=== PATIENT | female | born 1960 | race Caucasian/White ===

== ENCOUNTER 2022-10-27 10:12 | Inpatient (IN) | payer OTHER ==
[~2022-10-27] VITALS: Ht 167.6 cm; Wt 73.5 kg
--- NOTE | 2022-10-27 10:28 | NUR ---
PTE ALERTA, CONCIENTE Y ORIENTADO X 3. PACIENTE REFIERE TENER DOLOR EN HEMOROIDES INFLAMADAS, DOLOR ABDOMINAL.
--- NOTE | 2022-10-27 12:29 | NUR ---
PACIENTE SE LE REALIZA ADMINISTRACION DE MEDICAMENTOS POR ORDEN MEDICA. SE ORIENTA A PACIENTE SOBRE USO Y EFECTOS. SE REALIZA CANALIZACION DE VENA Y SE MANTIENE EN ESPERA DE ESTUDIO YA NOTIFICADO.
--- NOTE | 2022-10-27 15:41 | NUR ---
SE RECIBE PTE ALERTA Y ORIENTADA EN SUKI BAJA CON BARANDAS ELEVADAS POR SEGURIDAD. SE OBSERVA CON BUEN PATRON RESPITAORIO, RECIBIENDO IV FLUIDS PATENTE. AREA DE VENOPUNCION LUCY DE EDEMA Y ERITEMA. PEND CT CON CONTRASTE PO Y IV A LAS 5:00PM.
[2022-10-30] MEDS ORDERED: DULOXETINE HCL30 MG (13:09)
[2022-10-30] MEDS ORDERED: OMEPRAZOLE20 MG (13:09)
[2022-10-30] MEDS ORDERED: PANTOPRAZOLE SO40 MG (13:09)
[2022-10-31] MEDS ORDERED: METRONIDAZOLE500 MG PO (13:44)
[2022-10-31] MEDS ORDERED: CIPRO500 MG PO (13:44)
[2022-10-31] MEDS ORDERED: INTESTINEX680 M1 PO (13:44)
== END 2022-10-31 14:59 | disposition home or self-care (01) | DRG 392 ==
LOC: ER 10:12 → SURH 21:01
PROVIDERS: ADMIT Surgery; ATTEND Surgery
PROC: BW21Y0Z Computerized Tomography (CT Scan) of Abdomen and Pelvis using Other Contrast, Unenhanced and Enhanced (ICD-10-PCS; principal; 2022-10-27)
DX: K57.92 Diverticulitis of intestine, part unspecified, without perforation or abscess without bleeding (principal); K52.89 Other specified noninfective gastroenteritis and colitis; K57.30 Diverticulosis of large intestine without perforation or abscess without bleeding; K64.8 Other hemorrhoids; Z20.822 Contact with and (suspected) exposure to COVID-19

== ENCOUNTER 2023-05-10 10:12 | Emergency (ER) | payer OTHER ==
[~2023-05-10] VITALS: Ht 165.1 cm; Wt 78.5 kg
[~2023-05-10 10:12] MED LIST: CIPRO500 MG PO; DULOXETINE HCL30 MG; INTESTINEX680 M1 PO; METRONIDAZOLE500 MG PO; OMEPRAZOLE20 MG; PANTOPRAZOLE SO40 MG
[2023-05-10] MEDS ORDERED: INTESTINEX680 M1 PO (18:42)
[2023-05-10] MEDS ORDERED: METRONIDAZOLE500 MG PO (18:42)
[2023-05-10] MEDS ORDERED: DICY20TA PO (18:42)
[2023-05-10] MEDS ORDERED: CIPRO500 MG PO (18:42)
== END 2023-05-10 18:59 | disposition home or self-care (01) ==
LOC: ER 10:12
PROVIDERS: Emergency Medicine
DX: R10.30 Lower abdominal pain, unspecified (principal); K57.92 Diverticulitis of intestine, part unspecified, without perforation or abscess without bleeding; N28.1 Cyst of kidney, acquired

== ENCOUNTER 2023-12-30 21:36 | Inpatient (IN) | payer OTHER ==
[~2023-12-30] VITALS: Ht 167.6 cm; Wt 75.3 kg
[~2023-12-30 21:36] MED LIST changes: +DICY20TA PO
[2023-12-30] MEDS ORDERED: BENTYL10 MG/1 ML IM (21:49)
[2023-12-30] MEDS ORDERED: KETOROLAC TROMETHAMINE 30 MG VIAL IV ONE (22:30)
[2023-12-30 23:27] LABS: HEMATOCRIT 38.8 % (36.0-45.00); HEMOGLOBIN 13.3 g/dL (12.0-15.00); MEAN CELL VOLUME 89.8 fL (80.00-100.00); MEAN CORPUSCULAR HEMOGLOBIN 30.7 pg (27.00-32.0); MEAN CORPUSCULAR HGB CONC 34.2 g/dl (32.0-36.0); PLATELET COUNT 306 K/uL (150-450); RED BLOOD COUNT 4.32 M/uL (4.00-6.00); RED CELL DISTRIBUTION WIDTH 13.3 % (11.5-14.5)
[2023-12-30 23:27] LABS: PH,URINE 6.5 (5.0-8.0); URINE APPEARANCE Clear; URINE BILIRRUBIN Negative (NEGATIVE); URINE BLOOD Small; URINE COLOR Yellow; URINE GLUCOSE Negative (NEGATIVE); URINE LEUKOCYTE Negative; URINE NITRATE Negative; URINE PROTEIN Negative (NEGATIVE); URINE UROBILINOGEN 0.2 E.U./dl
[2023-12-30 23:32] LABS: URINE EPITHELIAL CELLS 6.6 uL (0.0-38.8); URINE RBC 42.6 uL (0.0-20.8)
[2023-12-30 23:36] LABS: URINE BACTERIA 2.5 uL (0.0-1933)
[2023-12-30 23:45] LABS: CALCIUM 9.5 mg/dL (8.5-10.1); CREATININE SERUM 0.86 mg/dL (0.55-1.02); POTASSIUM 4.7 mEq/L (3.5-5.1)
[2023-12-30 23:49] LABS: GFR 66.64
[2023-12-31] MEDS ORDERED: 0.9 % SODIUM CHLORIDE 1,000 ML IV SCH
[2023-12-31] MEDS ORDERED: ONDANSETRON HCL 2 MG/ML VIAL IV STA (01:01)
[2023-12-31] MEDS ORDERED: MEPERIDINE HCL/PF 50 MG/ML VIAL IM STA (02:58)
[2023-12-31] MEDS ORDERED: CIPROFLOXACIN IN 5 % DEXTROSE 400 MG/200 ML PIGGYBAG IV STA (03:41)
[2023-12-31] MEDS ORDERED: METRONIDAZOLE/SODIUM CHLORIDE 500 MG/100 ML PIGGYBACK IV STA (03:41)
[2023-12-31] MEDS ORDERED: METRONIDAZOLE/SODIUM CHLORIDE 100 ML IV SCH (09:00)
[2023-12-31] MEDS ORDERED: CIPROFLOXACIN IN 5 % DEXTROSE 200 ML IV SCH (09:00)
[2023-12-31] MEDS ORDERED: FAMOTIDINE/PF 20 MG/2 ML VIAL IV SCH (12:08)
[2023-12-31] MEDS ORDERED: ONDANSETRON HCL 4 MG in 0.9 % SODIUM CHLORIDE 50 ML IV PRN (12:15)
[2023-12-31] MEDS ORDERED: MORPHINE SULFATE 4 MG/ML CARTRIDGE IV SCH (13:00)
[2023-12-31 13:46] LABS: INR 1.06; PARTIAL THROMBOPLASTIN TIME 31.1 SECONDS (22.0-34.0); PROTHROMBIN TIME 11.1 SECONDS (9.0-11.5)
[2023-12-31 13:54] LABS: CHOL HDL RATIO 2.5 (0-5.0); MAGNESIUM 2.2 mg/dL (1.8-2.4); PHOSPHOROUS 2.8 mg/dL (2.5-4.9)
[2023-12-31 14:09] LABS: C-REACTIVE PROTEIN 2.99 MG/DL (0.00-0.29)
[2024-01-01] MEDS ORDERED: KETOROLAC TROMETHAMINE 30 MG VIAL IM PRN (07:45)
== END 2024-01-03 10:36 | disposition home or self-care (01) | DRG 392 ==
LOC: ER 21:37 → MEDJ 12-31 13:50 → MEDI 12-31 13:50 → SEC-K 12-31 13:50 → MEDJ 12-31 14:58 → MEDI 01-01 14:07
PROVIDERS: Emergency Medicine; General Practice; ADMIT Internal Medicine; ATTEND Internal Medicine
PROC: BW21YZZ Computerized Tomography (CT Scan) of Abdomen and Pelvis using Other Contrast (ICD-10-PCS; principal; 2023-12-30)
DX: K57.32 Diverticulitis of large intestine without perforation or abscess without bleeding (principal); K90.49 Malabsorption due to intolerance, not elsewhere classified

== ENCOUNTER 2024-03-11 11:45 | Inpatient (IN) | payer OTHER ==
[~2024-03-11] VITALS: Ht 165.1 cm; Wt 73.0 kg
[~2024-03-11 11:45] MED LIST changes: +BENTYL10 MG/1 ML IM; +HYOSCYAMINE0.125 M1
[2024-03-14] MEDS ORDERED: METRONIDAZOLE/SODIUM CHLORIDE 500 MG/100 ML PIGGYBACK IV ONE ×2 (12:57→17:21)
[2024-03-14] MEDS ORDERED: CEFTRIAXONE SODIUM 2,000 MG VIAL ONE (12:57)
[2024-03-14] MEDS ORDERED: SUCRALFATE1 GM (13:13)
[2024-03-14] MEDS ORDERED: RALOXIFENE HCL60 MG (13:13)
[2024-03-14] MEDS ORDERED: KETOCONAZOLE15 GM (13:13)
[2024-03-14] MEDS ORDERED: LIDOCAINE HCL 1%/EPINEPHRINE 20ML VIAL IJ ONE (14:45)
[2024-03-14] MEDS ORDERED: BUPIVACAINE HCL 30 ML VIAL IJ ONE (14:45)
[2024-03-14] MEDS ORDERED: RINGERS SOLUTION,LACTATED 1,000 ML IV SCH (15:45)
[2024-03-14] MEDS ORDERED: ONDANSETRON HCL 2 MG/ML VIAL IV PRN (15:45)
[2024-03-14] MEDS ORDERED: OxyCODONE HCL 5 MG TABLET (ROXICODONE) PO PRN (15:45)
[2024-03-14] MEDS ORDERED: MEPERIDINE HCL/PF 50 MG/ML VIAL IV PRN (16:00)
[2024-03-14] MEDS ORDERED: METRONIDAZOLE/SODIUM CHLORIDE 500 MG/100 ML PIGGYBACK IV SCH (17:00)
[2024-03-14] MEDS ORDERED: GABAPENTIN 300 MG CAPSULE PO SCH (17:00)
[2024-03-14] MEDS ORDERED: LACTOBACILLUS ACIDOPHILUS 1 CAP CAP PO SCH (17:00)
[2024-03-14] MEDS ORDERED: HYOSCYAMINE SULFATE 0.125 MG TAB.SUBL SL SCH (17:00)
[2024-03-14] MEDS ORDERED: TAMSULOSIN HCL 0.4 MG CAP PO SCH (17:00)
[2024-03-14] MEDS ORDERED: ACETAMINOPHEN 500 MG GEL..CAP PO SCH (18:00)
[2024-03-14] MEDS ORDERED: FAMOTIDINE/PF 20 MG/2 ML VIAL IV PUSH SCH (21:00)
[2024-03-14] MEDS ORDERED: CIPROFLOXACIN IN 5 % DEXTROSE 400 MG/200 ML PIGGYBAG IV SCH (21:00)
[2024-03-15 07:08] LABS: HEMATOCRIT 29.9 % (36.0-45.00); HEMOGLOBIN 10.2 g/dL (12.0-15.00); MEAN CELL VOLUME 89.8 fL (80.00-100.00); MEAN CORPUSCULAR HEMOGLOBIN 30.8 pg (27.00-32.0); MEAN CORPUSCULAR HGB CONC 34.3 g/dl (32.0-36.0); PLATELET COUNT 311 K/uL (150-450); RED BLOOD COUNT 3.33 M/uL (4.00-6.00); RED CELL DISTRIBUTION WIDTH 13.4 % (11.5-14.5)
[2024-03-15 08:02] LABS: CALCIUM 8.7 mg/dL (8.5-10.1); CREATININE SERUM 0.73 mg/dL (0.55-1.02); GFR 80.52; MAGNESIUM 1.9 mg/dL (1.8-2.4); PHOSPHOROUS 3.2 mg/dL (2.5-4.9); POTASSIUM 4.14 mEq/L (3.5-5.1)
[2024-03-15] MEDS ORDERED: ENOXAPARIN SODIUM 40 MG/0.4 ML SYRINGE SUBCUTANEO SCH (17:00)
[2024-03-16] MEDS ORDERED: ENOXAPARIN SODIUM 40 MG/0.4 ML SYRINGE SUBCUTANEO SCH (09:00)
[2024-03-16 12:17] LABS: MEAN CELL VOLUME 90.2 fL (80.00-100.00); MEAN CORPUSCULAR HGB CONC 33.9 g/dl (32.0-36.0); PLATELET COUNT 229 K/uL (150-450)
[2024-03-16 12:20] LABS: HEMATOCRIT 20.7 % (36.0-45.00); MEAN CORPUSCULAR HEMOGLOBIN 30.4 pg (27.00-32.0)
[2024-03-16 12:47] LABS: ALBUMIN 2.8 gm/dL (3.4-5.0); CALCIUM 8.2 mg/dL (8.5-10.1); CREATININE SERUM 0.71 mg/dL (0.55-1.02); GFR 83.14; POTASSIUM 3.57 mEq/L (3.5-5.1)
[2024-03-16 13:34] LABS: PHOSPHOROUS 1.5 mg/dL (2.5-4.9)
[2024-03-16] MEDS ORDERED: POTASSIUM PHOS,M-BASIC-D-BASIC 15 MM in 0.9 % SODIUM CHLORIDE 250 ML IV NR (13:45)
[2024-03-16] MEDS ORDERED: CLONAZEPAM 1 MG TABLET PO PRN (17:00)
[2024-03-17 11:08] LABS: HEMATOCRIT 29.5 % (36.0-45.00); HEMOGLOBIN 10.2 g/dL (12.0-15.00); MEAN CELL VOLUME 86.7 fL (80.00-100.00); MEAN CORPUSCULAR HEMOGLOBIN 30.1 pg (27.00-32.0); MEAN CORPUSCULAR HGB CONC 34.7 g/dl (32.0-36.0); PLATELET COUNT 202 K/uL (150-450); RED CELL DISTRIBUTION WIDTH 14.3 % (11.5-14.5)
[2024-03-17] MEDS ORDERED: SOD FERRIC GLUC COMPLX/SUCROSE 62.5 MG in 0.9 % SODIUM CHLORIDE 50 ML IV SCH (12:00)
[2024-03-17] MEDS ORDERED: Cyanocobalamin/Mecobalamin 1 TAB.SL SL SCH (12:00)
[2024-03-17] MEDS ORDERED: FOLIC ACID 1 MG TABLET PO SCH (12:00)
[2024-03-18 06:51] LABS: HEMATOCRIT 29.2 % (36.0-45.00); HEMOGLOBIN 10.2 g/dL (12.0-15.00); MEAN CELL VOLUME 87.5 fL (80.00-100.00); MEAN CORPUSCULAR HEMOGLOBIN 30.6 pg (27.00-32.0); PLATELET COUNT 222 K/uL (150-450); RED BLOOD COUNT 3.33 M/uL (4.00-6.00); RED CELL DISTRIBUTION WIDTH 14.1 % (11.5-14.5)
[2024-03-18] MEDS ORDERED: INTEGRA F CAPS1 EACH PO (08:33)
[2024-03-18] MEDS ORDERED: INTESTINEX680 M1 PO (08:34)
[2024-03-18] MEDS ORDERED: TRAMADOL HCL50 MG PO (08:34)
[2024-03-18] MEDS ORDERED: HYOSCYAMINE0.125 M1 SL (08:35)
[2024-03-18] MEDS ORDERED: LEVOFLOXACIN500 MG PO (08:37)
== END 2024-03-18 21:20 | disposition home or self-care (01) | DRG 330 ==
LOC: O/R 03-14 10:10 → SURH 03-14 11:45 → SURG 03-14 16:05 → SURH 03-14 16:15 → SURG 03-18 21:20
PROVIDERS: Surgery; ADMIT Surgery; ATTEND Surgery
PROC: 0DBP4ZZ Excision of Rectum, Percutaneous Endoscopic Approach (ICD-10-PCS; 2024-03-14)
PROC: 0DNW4ZZ Release Peritoneum, Percutaneous Endoscopic Approach (ICD-10-PCS; 2024-03-14)
PROC: 0DJD8ZZ Inspection of Lower Intestinal Tract, Via Natural or Artificial Opening Endoscopic (ICD-10-PCS; 2024-03-14)
PROC: 0DTN4ZZ Resection of Sigmoid Colon, Percutaneous Endoscopic Approach (ICD-10-PCS; principal; 2024-03-14 16:15)
PROC: 4A12X4Z Monitoring of Cardiac Electrical Activity, External Approach (ICD-10-PCS; 2024-03-16)
PROC: 30233N1 Transfusion of Nonautologous Red Blood Cells into Peripheral Vein, Percutaneous Approach (ICD-10-PCS; 2024-03-16)
DX: K57.30 Diverticulosis of large intestine without perforation or abscess without bleeding (principal); K61.1 Rectal abscess; R19.4 Change in bowel habit; N73.6 Female pelvic peritoneal adhesions (postinfective); N99.4 Postprocedural pelvic peritoneal adhesions; D64.9 Anemia, unspecified

== ENCOUNTER 2024-04-13 10:26 | Emergency (ER) | payer OTHER ==
[~2024-04-13] VITALS: Ht 165.1 cm; Wt 71.7 kg
[~2024-04-13 10:26] MED LIST changes: +HYOSCYAMINE0.125 M1 SL; +INTEGRA F CAPS1 EACH PO; +KETOCONAZOLE15 GM; +LEVOFLOXACIN500 MG PO; +RALOXIFENE HCL60 MG; +SUCRALFATE1 GM; +TRAMADOL HCL50 MG PO
[2024-04-13] MEDS ORDERED: KETOROLAC TROMETHAMINE 30 MG VIAL ONE (12:28)
[2024-04-13] MEDS ORDERED: KETOROLAC TROMETHAMINE 15 MG VIAL IV ONE (12:30)
[2024-04-13] MEDS ORDERED: GABAPENTIN 100 MG CAPSULE PO ONE (12:30)
[2024-04-13 12:54] LABS: HEMATOCRIT 41.7 % (36.0-45.00); HEMOGLOBIN 14.1 g/dL (12.0-15.00); MEAN CELL VOLUME 89.2 fL (80.00-100.00); MEAN CORPUSCULAR HEMOGLOBIN 30.2 pg (27.00-32.0); MEAN CORPUSCULAR HGB CONC 33.9 g/dl (32.0-36.0); PLATELET COUNT 324 K/uL (150-450); RED BLOOD COUNT 4.67 M/uL (4.00-6.00); RED CELL DISTRIBUTION WIDTH 14.6 % (11.5-14.5)
[2024-04-13 13:22] LABS: ALBUMIN 4.2 gm/dL (3.4-5.0); BILIRUBIN TOTAL 0.43 mg/dL (0.3-1.2); CREATININE SERUM 0.6 mg/dL (0.55-1.02); GFR 100.97; GLOBULINA 4.6 G/DL (2.4-3.5); POTASSIUM 4.14 mEq/L (3.5-5.1); TOTAL PROTEIN 8.8 gm/dL (6.4-8.2)
== END 2024-04-13 16:14 | disposition home or self-care (01) ==
LOC: ER 10:28
PROVIDERS: General Practice
DX: M54.31 Sciatica, right side (principal); Z88.8 Allergy status to other drugs, medicaments and biological substances

== ENCOUNTER 2025-05-16 10:22 | Emergency (ER) | payer OTHER ==
[~2025-05-16] VITALS: Ht 165.1 cm; Wt 63.5 kg
[2025-05-16] MEDS ORDERED: KETOROLAC TROMETHAMINE 60 MG VIAL IM ONE ×2 (13:19→13:30)
== END 2025-05-16 17:04 | disposition home or self-care (01) ==
LOC: ER 10:22
DX: K64.4 Residual hemorrhoidal skin tags (principal); K57.32 Diverticulitis of large intestine without perforation or abscess without bleeding; Z88.8 Allergy status to other drugs, medicaments and biological substances
CPT/HCPCS: 46083; 96372; 99282; J1885